=== PATIENT | female | born 1950 | race Caucasian/White ===

== ENCOUNTER 2022-02-26 09:50 | Emergency (ER) | payer OTHER ==
[~2022-02-26] VITALS: Ht 152.4 cm; Wt 72.6 kg
[2022-02-26 09:59] VITALS: BP 179/105
--- NOTE | 2022-02-26 09:59 | NUR ---
PATIENT [facility] AND [place] FIRE DEPT. PATIENT WAS SEEN BY RESIDENCE STAFF PRESENTING WITH ALOC. LAST KNOWN WELL WAS 9AM. PATIENT'S BASELINE MENTATION WAS A/O X4. PATIENT'S CURRENT GCS IS 3. PATIENT IS PRESENTING WITH LEFT SIDED GAZE, IS NONE-VERBAL, NOTED TO BE LEANING TO THE LEFT SIDE. PATIENT IS NOT MAKING ANY VOLUNTATRY MOVEMENT. PATIENT IS NOT RESPONDING TO STIMULI. DR. ZIEGLER ASSESSING PATIENT. RESPIRATORY THERAPIST IS ON STANDBY AND CT SCAN IS READY FOR PATIENT. BASE CONTACT MADE WITH [facility] TO ALERT OF CODE STROKE.
--- NOTE | 2022-02-26 10:08 | NUR ---
PATIENT SEEN BY DR. ZIEGLER. PATIENT PRESENTS WITH STROKE SYMPTOMS. DR. ZIEGLER CLEARED PATIENT TO TRANSFER TO [facility]. ([facility] STROKE [place]) BASE CONTACT MADE WITH PLN ([facility]). [facility] AWARE OF PATIENT TRANSFER TO THEIR FACILITY FOR APPROPRIATE LEVEL OF CARE. PATIENT TRANSFERRED CODE 3 VIA AMBULANCE
--- NOTE | 2022-02-26 10:10 | NUR ---
Patient to be transferred to [facility]. Is being transferred due to CODE STROKE. Receiving facility has accepting physician and available space. Report called to ARMEN BYRD at receiving facility.
[2022-02-26 10:16] VITALS: BP 179/105
== END 2022-02-26 10:10 | disposition short-term general hospital (02) ==
LOC: MED 09:50
DX: R41.82 Altered mental status, unspecified (principal); E11.9 Type 2 diabetes mellitus without complications; I10 Essential (primary) hypertension; E78.5 Hyperlipidemia, unspecified; Z79.4 Long term (current) use of insulin; Z79.899 Other long term (current) drug therapy
CPT/HCPCS: 99283